=== PATIENT | male | born 1975 | race American Indian/Alaskan Native ===

== ENCOUNTER 2021-11-20 14:08 | Emergency (ER) | payer MEDICAID ==
[2021-11-20] MEDS ORDERED: amLODIPine 5 MG TAB PO ONE (14:23)
[2021-11-20] MEDS ORDERED: SODIUM CHLORIDE 0.9% 1000 ML 1,000 ML IV ONE (14:23)
--- NOTE | 2021-11-20 14:23 | Emergency Department Report ---
ED General Adult HPI - General Chief complaint: Hyperglycemia Stated complaint: HYPERGLYCEMIA PUI?: No Time Seen by Provider: 11/20/21 14:22 Source: patient, EMS (Verbal report received from emergency medical services. E MS documentation not available at time of chart dictation ), RN notes reviewed Mode of arrival: Ambulatory Limitations: No Limitations - History of Present Illness Initial comments: The patient is a 46-year-old gentleman. He presents to the ER today with a complaint of painless high blood sugar, and sensation that his left arm is cramping up. The patient denies headache, neck pain, chest pain, abdominal pain, shortness of breath, extremity weakness and numbness. He denies dysuria, frequency, polyuria and polydipsia. He was previously maintained on outpatient medications for both blood pressure and diabetes, but has not taken medication for quite some time, secondary to lack of ability to follow-up. He is not COVID-19 vaccinated. As per verbal report from emergency medical services, patient walks about 1/2 mile to get to them from a [place]. They report normal vital signs in the field, with the exception of elevated blood pressure. -: Gradual Consistency: intermittent Improves with: none Worsens with: none - Related Data Previous Rx's Medication Instructions Recorded Last Taken Type Amlodipine Besylate [Norvasc] 10 mg PO QDAY #60 tablet 11/20/21 Unknown Rx metFORMIN [Glucophage] 500 mg PO BID #60 tablet 11/20/21 Unknown Rx Allergies Allergy/AdvReac Type Severity Reaction Status Date / Time No Known Allergies Allergy Verified 11/20/21 14:16 ED Review of Systems ROS: Stated complaint: HYPERGLYCEMIA Other details as noted in HPI Constitutional: denies: fever Eyes: denies: eye discharge, vision change ENT: denies: epistaxis Respiratory: denies: cough Cardiovascular: denies: chest pain Gastrointestinal: denies: abdominal pain Genitourinary: denies: dysuria Musculoskeletal: denies: back pain Neurological: denies: weakness, numbness, paresthesias ED Past Medical Hx - Past Medical History Hx Hypertension: Yes Hx Asthma: Yes Hx Dementia: Yes - Surgical History Past Surgical History?: No - Medications Home Medications: Home Medications Medication Instructions Recorded Confirmed Last Taken Type Amlodipine Besylate [Norvasc] 10 mg PO QDAY #60 tablet 11/20/21 Unknown Rx metFORMIN [Glucophage] 500 mg PO BID #60 tablet 11/20/21 Unknown Rx ED Physical Exam - General Limitations: No Limitations General appearance: alert, in no apparent distress - Head Head exam: Present: atraumatic, normocephalic - Eye Eye exam: Present: normal appearance, EOMI. Absent: nystagmus - ENT ENT exam: Present: normal exam, normal orophraynx, mucous membranes moist, normal external ear exam - Neck Neck exam: Present: normal inspection, full ROM. Absent: tenderness, meningismus - Respiratory Respiratory exam: Present: normal lung sounds bilaterally. Absent: respiratory distress, wheezes, rales, rhonchi, stridor, decreased breath sounds - Cardiovascular Cardiovascular Exam: Present: regular rate, normal rhythm, normal heart sounds. Absent: bradycardia, tachycardia, irregular rhythm, systolic murmur, diastolic murmur, rubs, gallop - GI/Abdominal GI/Abdominal exam: Present: soft, normal bowel sounds. Absent: distended, tenderness, guarding, rebound, rigid, pulsatile mass - Rectal Rectal exam: Present: deferred - Extremities Exam Extremities exam: Present: normal inspection, full ROM, other (2+ pulses noted in the bilateral upper and lower extremities. There is no palpable cord. negative Homans sign. Muscular compartments are soft. The pelvis is stable.). Absent: pedal edema, calf tenderness - Back Exam Back exam: Present: normal inspection, full ROM. Absent: tenderness, CVA tenderness (R), CVA tenderness (L), paraspinal tenderness, vertebral tenderness - Neurological Exam Neurological exam: Present: alert, oriented X3, normal gait, other (No facial droop. Tongue midline. Extraocular movements intact bilaterally. Facial sensation intact to light touch in V1, V2, V3 distribution bilaterally. 5 and a 5 strength in 4 extremities. Sensation intact to light touch in 4 extremities.). Absent: motor sensory deficit - Psychiatric Psychiatric exam: Present: normal affect, normal mood - Skin Skin exam: Present: warm, dry, intact, normal color. Absent: rash ED Course Vital Signs 11/20/21 11/20/21 11/20/21 14:16 14:58 17:55 Temperature 98.8 F Pulse Rate 102 H 89 87 Respiratory 16 18 Rate Blood Pressure 210/132 Blood Pressure 200/132 186/126 [Right] O2 Sat by Pulse 100 96 Oximetry - Reevaluation(s) Reevaluation #1: 11/20/21 15:23 Differential diagnosis, including but not limited to: Hyperglycemia, hypertension, noncompliance, medication refill, dehydration, electrolyte derangement Assessment and plan: 46-year-old gentleman, who was afebrile, with reassuring vital signs, clinically sober, with a GCS of 15, NIH score of 0, who walks with a steady gait, and has 5/5 strength in 4 extremities, sensation intact to light touch in 4 extremities, who is ranging 4 extremities without difficulty, with a primary complaint of painless hyperglycemia and complaint of left arm cramping and locking up. He has full range of motion his extremities. Hypertension is chronic. It is not acutely decompensated. Please reference the [employer] clinical policy on asymptomatic hypertension. Given complaint of hyperglycemia, check appropriate laboratory studies. Start IV fluids and Norvasc. Extensive discussion had with patient regarding need to follow-up with outpatient primary care physician, and to initiate diet and lifestyle modifications. Patient may be discharged with Norvasc and Metformin. Outpatient follow-up for chronic issues. He is also not COVID-19 vaccinated, I have encouraged the patient to pursue outpatient COVID-19 vaccination. 11/20/21 15:43 Laboratory studies reviewed and appreciated. They are unremarkable with exception of hyperglycemia. IV fluids and insulin ordered. Patient resting comfortably in stretcher. Care will be transferred to the oncoming ER physician plan to discharge patient when the patient's glucose is improved. ED Medical Decision Making - Lab Data Result diagrams: 11/20/21 14:44 11/20/21 14:44 Vital Signs 11/20/21 11/20/21 14:16 14:58 Temperature 98.8 F Pulse Rate 102 H 89 Respiratory 16 Rate Blood Pressure 210/132 Blood Pressure 200/132 [Right] O2 Sat by Pulse 100 Oximetry Lab Results 11/20/21 11/20/21 11/20/21 Range/Units 14:39 14:44 14:44 WBC 5.2 (4.5-11.0) K/mm3 RBC 4.93 (3.65-5.03) M/mm3 Hgb 13.6 (11.8-15.2) gm/dl Hct 42.4 (35.5-45.6) % MCV 86 (84-94) fl MCH 28 (28-32) pg MCHC 32 (32-34) % RDW 15.3 H (13.2-15.2) % Plt Count 139 L (140-440) K/mm3 VBG pH (7.320-7.420) Estimated GFR 50 ml/min BUN/Creatinine Ratio 11 % POC Glucose 449 H (70-105) mg/dL Albumin/Globulin Ratio 1.1 % 11/20/21 Range/Units 14:44 WBC (4.5-11.0) K/mm3 RBC (3.65-5.03) M/mm3 Hgb (11.8-15.2) gm/dl Hct (35.5-45.6) % MCV (84-94) fl MCH (28-32) pg MCHC (32-34) % RDW (13.2-15.2) % Plt Count (140-440) K/mm3 VBG pH 7.350 (7.320-7.420) Estimated GFR ml/min BUN/Creatinine Ratio % POC Glucose (70-105) mg/dL Albumin/Globulin Ratio % Lab Results 11/20/21 11/20/21 11/20/21 Range/Units 14:39 14:44 14:44 WBC 5.2 (4.5-11.0) K/mm3 RBC 4.93 (3.65-5.03) M/mm3 Hgb 13.6 (11.8-15.2) gm/dl Hct 42.4 (35.5-45.6) % MCV 86 (84-94) fl MCH 28 (28-32) pg MCHC 32 (32-34) % RDW 15.3 H (13.2-15.2) % Plt Count 139 L (140-440) K/mm3 VBG pH (7.320-7.420) Sodium 137 (137-145) mmol/L Potassium 4.0 (3.6-5.0) mmol/L Chloride 99.5 (98-107) mmol/L Carbon Dioxide 25 (22-30) mmol/L Anion Gap 17 mmol/L BUN 17 (9-20) mg/dL Creatinine 1.5 H (0.8-1.3) mg/dL Estimated GFR 50 ml/min BUN/Creatinine Ratio 11 % Glucose 478 H (75-100) mg/dL POC Glucose 449 H (70-105) mg/dL Calcium 9.0 (8.4-10.2) mg/dL Magnesium 1.70 (1.7-2.3) mg/dL Total Bilirubin 0.30 (0.1-1.2) mg/dL AST 14 (5-40) units/L ALT 18 (7-56) units/L Alkaline Phosphatase 132 H (35-129) units/L Total Creatine Kinase 151 (55-170) units/L Total Protein 7.3 (6.3-8.2) g/dL Albumin 3.9 (3.9-5) g/dL Albumin/Globulin Ratio 1.1 % 11/20/21 Range/Units 14:44 WBC (4.5-11.0) K/mm3 RBC (3.65-5.03) M/mm3 Hgb (11.8-15.2) gm/dl Hct (35.5-45.6) % MCV (84-94) fl MCH (28-32) pg MCHC (32-34) % RDW (13.2-15.2) % Plt Count (140-440) K/mm3 VBG pH 7.350 (7.320-7.420) Sodium (137-145) mmol/L Potassium (3.6-5.0) mmol/L Chloride (98-107) mmol/L Carbon Dioxide (22-30) mmol/L Anion Gap mmol/L BUN (9-20) mg/dL Creatinine (0.8-1.3) mg/dL Estimated GFR ml/min BUN/Creatinine Ratio % Glucose (75-100) mg/dL POC Glucose (70-105) mg/dL Calcium (8.4-10.2) mg/dL Magnesium (1.7-2.3) mg/dL Total Bilirubin (0.1-1.2) mg/dL AST (5-40) units/L ALT (7-56) units/L Alkaline Phosphatase (35-129) units/L Total Creatine Kinase (55-170) units/L Total Protein (6.3-8.2) g/dL Albumin (3.9-5) g/dL Albumin/Globulin Ratio % Vital Signs 11/20/21 11/20/21 11/20/21 14:16 14:58 17:55 Temperature 98.8 F Pulse Rate 102 H 89 87 Respiratory 16 18 Rate Blood Pressure 210/132 Blood Pressure 200/132 186/126 [Right] O2 Sat by Pulse 100 96 Oximetry Lab Results 11/20/21 11/20/21 11/20/21 Range/Units 14:39 14:44 14:44 WBC 5.2 (4.5-11.0) K/mm3 RBC 4.93 (3.65-5.03) M/mm3 Hgb 13.6 (11.8-15.2) gm/dl Hct 42.4 (35.5-45.6) % MCV 86 (84-94) fl MCH 28 (28-32) pg MCHC 32 (32-34) % RDW 15.3 H (13.2-15.2) % Plt Count 139 L (140-440) K/mm3 VBG pH (7.320-7.420) Sodium 137 (137-145) mmol/L Potassium 4.0 (3.6-5.0) mmol/L Chloride 99.5 (98-107) mmol/L Carbon Dioxide 25 (22-30) mmol/L Anion Gap 17 mmol/L BUN 17 (9-20) mg/dL Creatinine 1.5 H (0.8-1.3) mg/dL Estimated GFR 50 ml/min BUN/Creatinine Ratio 11 % Glucose 478 H (75-100) mg/dL POC Glucose 449 H (70-105) mg/dL Calcium 9.0 (8.4-10.2) mg/dL Magnesium 1.70 (1.7-2.3) mg/dL Total Bilirubin 0.30 (0.1-1.2) mg/dL AST 14 (5-40) units/L ALT 18 (7-56) units/L Alkaline Phosphatase 132 H (35-129) units/L Total Creatine Kinase 151 (55-170) units/L Total Protein 7.3 (6.3-8.2) g/dL Albumin 3.9 (3.9-5) g/dL Albumin/Globulin Ratio 1.1 % 11/20/21 11/20/21 Range/Units 14:44 17:39 WBC (4.5-11.0) K/mm3 RBC (3.65-5.03) M/mm3 Hgb (11.8-15.2) gm/dl Hct (35.5-45.6) % MCV (84-94) fl MCH (28-32) pg MCHC (32-34) % RDW (13.2-15.2) % Plt Count (140-440) K/mm3 VBG pH 7.350 (7.320-7.420) Sodium (137-145) mmol/L Potassium (3.6-5.0) mmol/L Chloride (98-107) mmol/L Carbon Dioxide (22-30) mmol/L Anion Gap mmol/L BUN (9-20) mg/dL Creatinine (0.8-1.3) mg/dL Estimated GFR ml/min BUN/Creatinine Ratio % Glucose (75-100) mg/dL POC Glucose 265 H (70-105) mg/dL Calcium (8.4-10.2) mg/dL Magnesium (1.7-2.3) mg/dL Total Bilirubin (0.1-1.2) mg/dL AST (5-40) units/L ALT (7-56) units/L Alkaline Phosphatase (35-129) units/L Total Creatine Kinase (55-170) units/L Total Protein (6.3-8.2) g/dL Albumin (3.9-5) g/dL Albumin/Globulin Ratio % - EKG Data -: EKG Interpreted by Nm EKG shows normal: sinus rhythm Rate: normal - EKG Data 11/20/21 15:32 The EKG is interpreted at 15: 20 Sinus rhythm, rate 80 bpm. There is a normal axis, there is a right bundle branch block, there is left ventricular hypertrophy, there is no chest pain, nonspecific T wave abnormalities. This is an abnormal EKG. This is not a STEMI. Critical care attestation.: If time is entered above; I have spent that time in minutes in the direct care of this critically ill patient, excluding procedure time. ED Disposition Clinical Impression: Elevated blood pressure reading, Hyperglycemia, COVID-19 vaccination not done Disposition: 01 HOME / SELF CARE / HOMELESS Is pt being admited?: No Does the pt Need Aspirin: No Condition: Good Instructions: Hyperglycemia, Hypertension, Adult Additional Instructions: We recommend that the patient follow-up with a primary care doctor within the next 3 to 4 weeks. Patient is found to have evidence of hyperglycemia and elevated blood pressure. Long-term complications of these conditions include stroke, heart attack, disability, paralysis, and loss of quality of life. We recommend that the patient drink 4 to 6 cups of water per day, consume plenty of fiber, vegetables, and lean protein, avoid consumption of sugar, starch, simple carbohydrates and processed foods, patient may also reference the [employer] website for instructions on how to construct a diabetic appropriate diet. We also recommend that the patient complete outpatient COVID-19 vaccination series Please return to the emergency room right away with new pain, worsened pain, migration of pain, projectile vomiting, change in mental status, confusion, inability tolerate liquid feeds, new, worsened or different symptoms not present on the initial emergency room evaluation Prescriptions: metFORMIN [Glucophage] 500 mg PO BID #60 tablet Amlodipine Besylate [Norvasc] 10 mg PO QDAY #60 tablet Referrals: [facility] [Provider Group] - 3-5 Days
[2021-11-20 14:59] LABS: Hematocrit 42.4 % (35.5-45.6); Hemoglobin 13.6 gm/dl (11.8-15.2); Mean Corpuscular HGB Conc 32 % (32-34); Mean Corpuscular Volume 86 fl (84-94); Platelet Count 139 K/mm3 (140-440); Red Blood Count 4.93 M/mm3 (3.65-5.03); Red Cell Distribution Width 15.3 % (13.2-15.2)
[2021-11-20 15:17] LABS: Albumin 3.9 g/dL (3.9-5)
[2021-11-20] MEDS ORDERED: INSULIN REGULAR, HUMAN 100 UNITS/1 ML IV ONE (15:43)
[2021-11-20 17:57] VITALS: BP 186/126
--- NOTE | 2021-11-24 10:27 | Electrocardiograph Report ---
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
== END 2021-11-20 18:07 | disposition home or self-care (01) ==
LOC: ED 14:08
DX: I10 Essential (primary) hypertension (principal); R73.9 Hyperglycemia, unspecified; J45.909 Unspecified asthma, uncomplicated
CPT/HCPCS: 36415; 80053; 82550; 82805; 82962; 83735; 85027; 93005; 96361; 96374; 99284; J7030; Q0162; Q9967; J1815

== ENCOUNTER 2022-02-10 01:44 | Emergency (ER) | payer MEDICAID ==
[2022-02-10] MEDS ORDERED: cloNIDine 0.1 MG TAB PO ONE ×2 (02:20→05:52)
--- NOTE | 2022-02-10 02:23 | Emergency Department Report ---
<BLAISE MENCHACA - Last Filed: 02/10/22 05:37> ED General Adult HPI - General Chief complaint: Chest Pain Stated complaint: CHEST PAIN Time Seen by Provider: 02/10/22 02:07 Source: patient, EMS Mode of arrival: Ambulatory Limitations: No Limitations - History of Present Illness Initial comments: Patient is 46 years old male with history of hypertension diabetes. Patient is not compliant with his medication. Patient further the emergency room via EMS from home for evaluation of chest pain and high blood pressure. Patient stated that chest pain has been going on for a while. He stated that is been going on for several months. Patient stated that he was in [facility] and they refused to give him his medication. Patient stated that he supposed to go to penitentiary tonight because he has fight with his and daughter. He stated the police was there. Patient denied any shortness of breath, fever or chills. Severity scale (0 -10): 5 - Related Data Previous Rx's Medication Instructions Recorded Last Taken Type Amlodipine Besylate [Norvasc] 10 mg PO QDAY #60 tablet 11/20/21 Unknown Rx metFORMIN [Glucophage] 500 mg PO BID #60 tablet 11/20/21 Unknown Rx Glipizide/Metformin HCl 1 each PO BID #60 02/10/22 Unknown Rx [glipiZIDE-Metformin 5-500 mg] amLODIPine [Norvasc] 5 mg PO DAILY #30 tab 02/10/22 Unknown Rx hydroCHLOROthiazide [HCTZ] 25 mg PO QDAY #30 tablet 02/10/22 Unknown Rx Allergies Allergy/AdvReac Type Severity Reaction Status Date / Time No Known Allergies Allergy Verified 11/20/21 14:16 ED Review of Systems Comment: All other systems reviewed and negative Constitutional: denies: chills, fever Respiratory: denies: cough, shortness of breath, SOB with exertion, SOB at rest Cardiovascular: chest pain Gastrointestinal: denies: abdominal pain, nausea, vomiting, diarrhea, constipation, hematemesis, hematochezia Musculoskeletal: denies: back pain Neurological: denies: headache, weakness, numbness, paresthesias, confusion ED Past Medical Hx - Past Medical History Previous Medical History?: Yes Hx Hypertension: Yes Hx Diabetes: Yes Hx Asthma: Yes Hx Dementia: Yes - Surgical History Past Surgical History?: No - Medications Home Medications: Home Medications Medication Instructions Recorded Confirmed Last Taken Type Amlodipine Besylate [Norvasc] 10 mg PO QDAY #60 tablet 11/20/21 Unknown Rx metFORMIN [Glucophage] 500 mg PO BID #60 tablet 11/20/21 Unknown Rx Glipizide/Metformin HCl 1 each PO BID #60 02/10/22 Unknown Rx [glipiZIDE-Metformin 5-500 mg] amLODIPine [Norvasc] 5 mg PO DAILY #30 tab 02/10/22 Unknown Rx hydroCHLOROthiazide [HCTZ] 25 mg PO QDAY #30 tablet 02/10/22 Unknown Rx ED Physical Exam - General Limitations: No Limitations General appearance: alert, in no apparent distress - Head Head exam: Present: atraumatic, normocephalic, normal inspection - Eye Eye exam: Present: normal appearance - ENT ENT exam: Present: normal exam, normal orophraynx, mucous membranes moist - Neck Neck exam: Present: normal inspection, full ROM. Absent: tenderness, meningismus - Respiratory Respiratory exam: Present: normal lung sounds bilaterally - Cardiovascular Cardiovascular Exam: Present: regular rate, normal rhythm, normal heart sounds - GI/Abdominal GI/Abdominal exam: Present: soft, normal bowel sounds. Absent: distended, tenderness, guarding, rebound, rigid, organomegaly, mass, bruit, pulsatile mass, hernia - Extremities Exam Extremities exam: Present: normal inspection, full ROM, normal capillary refill. Absent: tenderness - Back Exam Back exam: Present: normal inspection, full ROM. Absent: CVA tenderness (R), CVA tenderness (L) - Neurological Exam Neurological exam: Present: alert, oriented X3, CN II-XII intact - Psychiatric Psychiatric exam: Absent: homicidal ideation, suicidal ideation - Skin Skin exam: Present: warm, intact, normal color ED Medical Decision Making - Lab Data Result diagrams: 02/10/22 02:42 02/10/22 02:42 - EKG Data EKG shows normal: sinus rhythm Rate: normal - EKG Data Interpretation: no acute changes - Radiology Data Radiology results: report reviewed - Medical Decision Making Patient is 46 years old male with history of hypertension diabetes. Patient is not compliant with his medication. Patient further the emergency room via EMS from home for evaluation of chest pain and high blood pressure. Patient stated that chest pain has been going on for a while. He stated that is been going on for several months. Patient [facility] his [facility]. Patient stated that he supposed to go to penitentiary tonight because he has fight with his and daughter. He stated the police was there. Patient denied any shortness of breath, fever or chills. ED Disposition Disposition: 07 LEFT AWOL/ELOPED Is pt being admited?: No Condition: Undetermined Instructions: Nonspecific Chest Pain, Adult, Hyperglycemia, [id number], Hypertension, Adult, Chest Pain (ED), Hypertension (ED) Prescriptions: amLODIPine [Norvasc] 5 mg PO DAILY #30 tab Glipizide/Metformin HCl [glipiZIDE-Metformin 5-500 mg] 1 each PO BID #60 hydroCHLOROthiazide [HCTZ] 25 mg PO QDAY #30 tablet Referrals: JOHN CALLOWAY MD [Primary Care Provider] - 3-5 Days <YOLANDA JOLLEY - Last Filed: 02/10/22 09:22> ED Review of Systems ROS: Stated complaint: CHEST PAIN Other details as noted in HPI ED Course Vital Signs 02/10/22 02/10/22 02/10/22 01:50 02:04 02:42 Temperature 98 F 98.3 F Pulse Rate 84 103 H 96 H Respiratory 18 20 Rate Blood Pressure 225/135 210/128 Blood Pressure 207/130 [Right] O2 Sat by Pulse 100 99 Oximetry 02/10/22 02/10/22 05:23 06:01 Temperature 98.5 F Pulse Rate 89 98 H Respiratory 20 Rate Blood Pressure 178/115 171/117 Blood Pressure [Right] O2 Sat by Pulse 98 Oximetry ED Medical Decision Making - Lab Data Result diagrams: 02/10/22 02:42 02/10/22 02:42 Critical care attestation.: If time is entered above; I have spent that time in minutes in the direct care of this critically ill patient, excluding procedure time. ED Disposition Is pt being admited?: No Does the pt Need Aspirin: No Time of Disposition: 09:22 (Patient eloped prior to final troponin draw)
--- NOTE | 2022-02-10 02:45 | XRay Report ---
CHEST 2 VIEWS INDICATION: Chest Pain. COMPARISON: None. FINDINGS: Support devices: None. Heart: Within normal limits. Lungs/Pleura: No acute air space or interstitial disease. No significant pleural effusion. IMPRESSION: No acute findings. Signer Name: Steven Allen MD Signed: 02/10/2022 2:41 AM Workstation Name: [id number]
[2022-02-10 03:03] LABS: Basophils % (Auto) 0.5 % (0.0-1.8); Eosinophils # (Auto) 0.1 K/mm3 (0.0-0.4); Hematocrit 38.9 % (35.5-45.6); Hemoglobin 13.3 gm/dl (11.8-15.2); Lymphocytes # (Auto) 1.5 K/mm3 (1.2-5.4); Lymphocytes % (Auto) 25.6 % (13.4-35.0); Mean Corpuscular HGB Conc 34 % (32-34); Mean Corpuscular Volume 84 fl (84-94); Monocytes # (Auto) 0.3 K/mm3 (0.0-0.8); Monocytes % (Auto) 4.2 % (0.0-7.3); Platelet Count 153 K/mm3 (140-440); Red Blood Count 4.62 M/mm3 (3.65-5.03); Red Cell Distribution Width 15.4 % (13.2-15.2)
[2022-02-10 03:23] LABS: BUN/Creatinine Ratio 9; Blood Urea Nitrogen 13 mg/dL (9-20); Calcium 8.9 mg/dL (8.4-10.2); Hemolysis Index 40
[2022-02-10] MEDS ORDERED: INSULIN REGULAR, HUMAN 100 UNITS/1 ML SUB-Q ONE (03:54)
[2022-02-10 06:04] VITALS: BP 171/117
--- NOTE | 2022-02-10 10:43 | Electrocardiograph Report ---
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
== END 2022-02-10 09:13 | disposition left against medical advice (07) ==
LOC: ED 01:44
DX: R07.9 Chest pain, unspecified (principal); I10 Essential (primary) hypertension; E11.8 Type 2 diabetes mellitus with unspecified complications
CPT/HCPCS: 36415; 71046; 80048; 82962; 84484; 85025; 93005; 96372; 99284; Q9967; J1815